=== PATIENT | female | born 2000 | race Caucasian/White ===

== ENCOUNTER 2019-02-08 15:18 | Emergency (ER) | payer OTHER ==
--- NOTE | 2019-02-08 15:28 | PDOC ---
Rapid Medical Evaluation Time Seen by Provider: 02/08/19 15:25 Medical Evaluation: 02/08/19 15:25 I performed a brief in-person evaluation of this patient. Chief complaint: Right facial numbess since yesterday, right-sided headaches and nausea x 1 month, reports pupil larger on right side Pertinent physical exam findings: Decreased sensation right lower face. No slurred speech or facial droop. BP 162/98. I have ordered the following: CBC, CMP, Mg, UA, urine preg, CT brain Patient to proceed to the ED for further evaluation. Discharge Disposition - Diagnosis Right facial numbness - Referrals - Patient Instructions - Post Discharge Activity
[2019-02-08 15:30] VITALS: PULSE 101; BMI 20.5
[2019-02-08 15:59] LABS: BASO % 0.6 % (0-2.0); EOS % 1.5 % (0-4.5); HEMATOCRIT 43.9 % (32.4-45.2); HEMOGLOBIN 14.8 GM/dL (10.7-15.3); LYMPH % 48.3 % (8-40); MCH 31.4 pg (25.7-33.7); MCHC 33.7 g/dl (32.0-36.0); MEAN CELL VOLUME 93.3 fl (80-96); MEAN PLT VOLUME 10.2 fl (7.5-11.1); MONO % 7.2 % (3.8-10.2); NEUT % 42.4 % (42.8-82.8); PLATELET COUNT 301 K/MM3 (134-434); RDW 11.9 % (11.6-15.6); WHITE BLOOD COUNT 6.5 K/mm3 (4.0-10.0)
[2019-02-08 16:27] LABS: ALBUMIN 4.4 g/dl (3.4-5.0); ALK PHOS 72 U/L (45-117); ANION GAP 6 MMOL/L (8-16); BILIRUBIN,TOTAL 0.9 mg/dL (0.2-1); BLOOD UREA NITROGEN 5 mg/dL (7-18); CALCIUM 9.3 mg/dL (8.5-10.1); CHLORIDE 104 mmol/L (98-107); CO2 28 mmol/L (21-32); CREATININE 0.6 mg/dL (0.55-1.3); GLUCOSE,RANDOM 83 mg/dL (74-106); MAGNESIUM 2.4 mg/dL (1.8-2.4); POTASSIUM 3.6 mmol/L (3.5-5.1); SGOT/AST 15 U/L (15-37); SGPT/ALT 26 U/L (13-61); SODIUM 137 mmol/L (136-145)
--- NOTE | 2019-02-08 20:14 | PDOC ---
Attending Attestation - HPI HPI: 02/08/19 20:33 The patient is a 18 year old female with a significant PMH of migraines who presents to the emergency department with numbness to the right cheek. Patient states the numbness starts at the right cheek and radiates down toward the jaw. Patient denies any history of Lyme or ticks. Patient has also noticed that her right pupil is slightly larger than the left. Patient states she has 2200 vision on the left eye but is used to walking around with the blurriness. Patient is also complaining of a migraine headache localized on the right side of the head. LMP ended last week. The patient denies chest pain, shortness of breath, and dizziness. Denies fever, chills, nausea, vomit, diarrhea and constipation. Denies dysuria, frequency, urgency and hematuria. Allergies: NKA Past surgical history: None reported. Social history: No reported alcohol, drug or cigarette use. - Physicial Exam PE: 02/08/19 20:33 GENERAL: Awake, alert, and fully oriented, in no acute distress HEAD: No signs of trauma EYES: PERRLA, EOMI ENT: Auricles normal inspection, hearing grossly normal, nares patent, oropharynx clear without exudates. Moist mucosa LUNGS: Breath sounds equal, clear to auscultation bilaterally. No wheezes, and no crackles HEART: Regular rate and rhythm, normal S1 and S2, no murmurs, rubs or gallops ABDOMEN: Soft, nontender, normoactive bowel sounds. No guarding, no rebound. No masses EXTREMITIES: Normal range of motion, no edema. No clubbing or cyanosis. No cords, erythema, or tenderness NEUROLOGICAL: Cranial nerves II through XII grossly intact. Normal speech, normal gait. (+) Numbness to the right bottom half of the face going to the left chin. (+) Left scapular numbness. SKIN: Warm, Dry, normal turgor, no rashes or lesions noted. <Dayanna Hopson - Last Filed: 02/08/19 20:33> - Resident Resident Name: Austin Alicea - ED Attending Attestation I have performed the following: I have examined & evaluated the patient, The case was reviewed & discussed with the resident, I agree w/resident's findings & plan - HPI HPI: 02/08/19 20:13 Pt comes with headache and right sided cheek numbness. - Medical Decision Making 02/08/19 20:14 CT head is normal. 02/08/19 23:11 EXAM: MRI brain without contrast and MRA brain without contrast HISTORY: New onset right facial numbness COMPARISON: None. FINDINGS: MRI brain: There is no evidence of acute infarction. There is no intracranial hemorrhage. No mass lesion or midline shift seen. There is no abnormal intra-axial or extra-axial fluid collection. Normal, expected flow-voids in the major intracranial vessels. CONFIDENTIALITY NOTICE: This information is intended only for the use of the recipient(s) named above. If you are not the intended recipient, or a person responsible for delivering it to the intended recipient, you are hereby notified that any disclosure, copying, distribution or use of any of the information contained in or attached to this transmission is STRICTLY PROHIBITED. If you have received this transmission in error, please immediately notify [employer] and destroy the original transmission and its attachments without saving them in any manner [address] [facility] [address] [place] [address] Phone: [phone]) Fax: Email: [email or web address] Web: [email or web address] Patient Information: : 2000 Order Type: Preliminary Name: KYREE SALTER Sex: F Study Description: MR BRAIN / MR MRA HEAD Modality: MR Location: [facility] Referring Physician: RASHAD CANO MRA brain: There is no major cerebral arterial stenosis or occlusion, vascular malformation or aneurysm of 3 mm or greater Pt is stable for discharge <Yuli Linares - Last Filed: 02/08/19 23:32>
--- NOTE | 2019-02-08 20:16 | PDOC ---
History of Present Illness - General Chief Complaint: CVA/TIA Stated Complaint: SENT BY PCP/RT CHEEK NUMBNES Time Seen by Provider: 02/08/19 15:25 History Source: Patient Exam Limitations: No Limitations - History of Present Illness Initial Comments: 02/08/19 19:24 18 yo F with a hx of ADHD presents to the emergency department with facial numbness and tingling since yesterday at 3pm. Per the patient, she states it was a sudden onset of facial tingling since yesterday at 3 pm. Per the patient, it was sudden onset located on the right sided cheek and lower face without radiation. Per the patient, it feels like when a "leg goes ; tingling feeling". Denies hx of lyme disease, MS in the family, and vitamin deficiencies. In addition, she had new onset of right sided migraine headache for the past month with pupillary dilation on the right over left. Endorses having chronic decreased right vision and endorses that she does not use glasses. Denies the following: fever, chills, SOB, chest pain, ears/nose/throat pain, rashes, dizziness, lightheadedness, nausea, vomiting, slurred speech, FND , abdominal pain, neck stiffness, dysuria, hematuria, and diarrhea. Shx: None Allergies: NKDA Social: Denies tobacco, alcohol, and substance abuse. Past History - Past Medical History Allergies/Adverse Reactions: Allergies Allergy/AdvReac Type Severity Reaction Status Date / Time No Known Allergies Allergy Verified 02/08/19 15:26 Home Medications: Ambulatory Orders Dextroamphetamine/Amphetamine [Adderall 10 mg Tablet] 15 mg PO ASDIR 02/08/19 COPD: No Psychiatric Problems: Yes (ADHD) - Immunization History Immunization Up to Date: Yes - Suicide/Smoking/Psychosocial Hx Smoking History: Never smoked Hx Alcohol Use: No Drug/Substance Use Hx: No Review of Systems - Review of Systems Able to Perform ROS?: Yes Is the patient limited Turkmen proficient: No Constitutional: No: Chills, Diaphoresis, Fever, Weakness HEENTM: No: Eye Pain, Blurred Vision, Nose Pain, Throat Pain, Mouth Pain Respiratory: No: Cough, Shortness of Breath Cardiac (ROS): No: Chest Pain, Lightheadedness, Palpitations, Syncope, Chest Tightness ABD/GI: No: Constipated, Diarrhea, Nausea, Rectal Bleeding, Vomiting, Tarry Stools : No: Burning, Dysuria, Hematuria Musculoskeletal: No: Back Pain, Joint Pain, Neck Pain Integumentary: No: Bruising, Erythema, Rash Neurological: Yes: Numbness, Tingling. No: Headache, Tremors, Ataxia, Dizziness Psychiatric: No: Change in Appetite Endocrine: No: Unexplained Weight Gain Hematologic/Lymphatic: No: Anemia *Physical Exam - Vital Signs Last Vital Signs Temp Pulse Resp BP Pulse Ox 98.6 F 101 H 16 162/98 100 02/08/19 15:27 02/08/19 15:27 02/08/19 15:27 02/08/19 15:27 02/08/19 15:27 - Physical Exam General Appearance: Yes: Nourished, Appropriately Dressed. No: Apparent Distress, Intoxicated HEENT: positive: EOMI, DAINA, Normal Voice, Symmetrical, Pharynx Normal, Hearing Grossly Normal. negative: Pale Conjunctivae, Scleral Icterus (R), Scleral Icterus (L), Muffled/Hoarse voice, Pharyngeal Erythema, Tonsillar Exudate, Tonsillar Erythema, Excessive drooling Neck: positive: Trachea midline, Supple. negative: Tender, Lymphadenopathy (R) , Lymphadenopathy (L), Tender lateral, Tender midline Respiratory/Chest: positive: Lungs Clear, Normal Breath Sounds. negative: Chest Tender, Respiratory Distress, Accessory Muscle Use, Crackles, Rales, Rhonchi, Stridor, Wheezing, Hyperresonant Cardiovascular: positive: Regular Rhythm, Regular Rate, S1, S2. negative: Systolic Murmur Gastrointestinal/Abdominal: positive: Normal Bowel Sounds, Flat, Soft. negative : Tender, Rebound, Tenderness Lymphatic: negative: Adenopathy Musculoskeletal: positive: Normal Inspection. negative: CVA Tenderness, Decreased Range of Motion, Vertebral Tenderness Extremity: positive: Normal Capillary Refill, Normal Inspection, Normal Range of Motion. negative: Tender, Swelling, Calf Tenderness Integumentary: positive: Normal Color, Dry, Warm Neurologic: positive: cyanide pot hardener II-XII NML intact, Fully Oriented, Alert, Normal Mood/ Affect, Normal Response, Motor Strength 5/5, Numbness (right v2-v3), Sensory Deficit (right v2-v3 ), Finger to Nose (intact). negative: EOM Palsy, Facial Droop, Confused, Disoriented, Depressed Affect Moderate Sedation - Procedure Monitoring Vital Signs: Procedure Monitoring Vital Signs Temperature 98.6 F 02/08/19 15:27 Pulse Rate 101 H 02/08/19 15:27 Respiratory Rate 16 02/08/19 15:27 Blood Pressure 162/98 02/08/19 15:27 O2 Sat by Pulse Oximetry (%) 100 02/08/19 15:27 ED Treatment Course - LABORATORY CBC & Chemistry Diagram: 02/08/19 15:33 02/08/19 15:33 - ADDITIONAL ORDERS Additional order review: Laboratory Results 02/08/19 02/08/19 16:10 15:33 Sodium 137 Potassium 3.6 Chloride 104 Carbon Dioxide 28 Anion Gap 6 L BUN 5 L Creatinine 0.6 Creat Clearance w eGFR 127.45 Random Glucose 83 Calcium 9.3 Magnesium 2.4 Total Bilirubin 0.9 AST 15 ALT 26 Alkaline Phosphatase 72 Total Protein 8.0 Albumin 4.4 Urine HCG, Qual Negative 02/08/19 15:33 RBC 4.70 MCV 93.3 MCHC 33.7 RDW 11.9 MPV 10.2 Neutrophils % 42.4 L Lymphocytes % 48.3 H Monocytes % 7.2 Eosinophils % 1.5 Basophils % 0.6 Medical Decision Making - Medical Decision Making 18 yo F with a hx of ADHD presents to the emergency department with facial numbness and tingling since yesterday at 3pm. Initial vitals: Initial Vital Signs Temp Pulse Resp BP Pulse Ox 98.6 F 101 H 16 162/98 100 02/08/19 15:27 02/08/19 15:27 02/08/19 15:27 02/08/19 15:27 02/08/19 15:27 Work up: patient presents to the emergency department with facial numbness concerning for vascular compromise intracranially. In addition, possible MS like features. headache is chronic over the past month without FND other than the cheek and lower jaw numbness on the right side. patient denies it being the worst headache of her life. CT head was negative. Laboratory Tests 02/08/19 02/08/19 02/08/19 15:33 15:33 16:10 WBC 6.5 RBC 4.70 Hgb 14.8 Hct 43.9 MCV 93.3 MCH 31.4 MCHC 33.7 RDW 11.9 Plt Count 301 MPV 10.2 Absolute Neuts (auto) 2.8 Neutrophils % 42.4 L Lymphocytes % 48.3 H Monocytes % 7.2 Eosinophils % 1.5 Basophils % 0.6 Nucleated RBC % 0 ESR Sodium 137 Potassium 3.6 Chloride 104 Carbon Dioxide 28 Anion Gap 6 L BUN 5 L Creatinine 0.6 Creat Clearance w eGFR 127.45 Random Glucose 83 Calcium 9.3 Magnesium 2.4 Total Bilirubin 0.9 AST 15 ALT 26 Alkaline Phosphatase 72 Total Protein 8.0 Albumin 4.4 Urine Color Straw Urine Appearance Clear Urine pH 7.0 Ur Specific [place] 1.002 L Urine Protein Negative Urine Glucose (UA) Negative Urine Ketones Negative Urine Blood Negative Urine Nitrite Negative Urine Bilirubin Negative Urine Urobilinogen Negative Ur Leukocyte Esterase Negative Urine HCG, Qual 02/08/19 02/08/19 16:10 20:30 WBC RBC Hgb Hct MCV MCH MCHC RDW Plt Count MPV Absolute Neuts (auto) Neutrophils % Lymphocytes % Monocytes % Eosinophils % Basophils % Nucleated RBC % ESR 3 Sodium Potassium Chloride Carbon Dioxide Anion Gap BUN Creatinine Creat Clearance w eGFR Random Glucose Calcium Magnesium Total Bilirubin AST ALT Alkaline Phosphatase Total Protein Albumin Urine Color Urine Appearance Urine pH Ur Specific [place] Urine Protein Urine Glucose (UA) Urine Ketones Urine Blood Urine Nitrite Urine Bilirubin Urine Urobilinogen Ur Leukocyte Esterase Urine HCG, Qual Negative labs within normal limits. no electrolyte abnormalities; especially calcium and potassium. Neurology was consulted (Dr Koroma). Per neurology, the patient can be followed up in outpatient if the patient does not wish to stay in the hospital pending normal MRI results. MRI brain and MRA were ordered and revealed to be within normal limits. the patient was well appearing at the time of discharge and understood the importance of following up with neurology within 7 days after discharge. in addition, she was given return precautions. Stable at discharge. Dispo: Discharge *DC/Admit/Observation/Transfer Diagnosis at time of Disposition: Right facial numbness - Discharge Dispostion Disposition: HOME Decision to Admit order: No - Referrals Referrals: Waldemar Magallanes MD [Staff Physician] - [facility] [place] [facility] [place]] - Patient Instructions Additional Instructions: you were seen in the emergency department for the evaluation of your facial numbness. please follow up with the neurologist that you are referred to within 1 week after discharge. in addition, please follow up with the primary medical doctor referred to you within 1 week after discharge. please return to the emergency department if you have worsening symptoms or new concerning symptoms such as weakness or confusion. thank you. - Post Discharge Activity
[2019-02-08 20:33] VITALS: BP 149/94; TEMP 98.2
[2019-02-08 20:58] LABS: URINE APPEARANCE CLEAR; URINE BILIRUBIN NEGATIVE (<2.0 mg/dL); URINE COLOR STRAW; URINE GLUCOSE (UA) NEGATIVE (NEGATIVE); URINE KETONE NEGATIVE (NEGATIVE); URINE LEUK ESTERASE NEGATIVE (NEGATIVE); URINE NITRITE NEGATIVE (NEGATIVE); URINE PROTEIN NEGATIVE (NEGATIVE); URINE UROBILINOGEN NEGATIVE mg/dL (0.2-1.0)
--- NOTE | 2019-02-08 21:01 | PN ---
Teaching Attending Note Name of Resident: Drew Cervantes ATTENDING PHYSICIAN STATEMENT I saw and evaluated the patient. I reviewed the resident's note and discussed the case with the resident. I agree with the resident's findings and plan as documented. SUBJECTIVE: Patient is a 18 year old woman with a PMH of ADHD and migraines who presents to the ER with numbness to the right cheek. Patient states the numbness starts at the right cheek and radiates down toward the jaw. Patient denies any history of Lyme or ticks. Patient has also noticed that her right pupil is slightly larger than the left. Patient states she has 2200 vision on the left eye but is used to walking around with the blurriness. Patient is also complaining of a migraine headache localized on the right side of the head. LMP ended last week. She denies chest pain, shortness of breath, dizziness, fever, chills, nausea, vomit, diarrhea, constipation, dysuria, frequency, urgency or hematuria. No drooling. No recent dental infection or issues and no limitation with chewing or swallowing. OBJECTIVE: Alert Vital Signs Period Temp Pulse Resp BP Sys/Sosa Pulse Ox Last 24 Hr 98.2 F-98.6 F 101-101 16-18 149-162/94-98 100-100 HEENT: No Jaundice, eye redness or discharge, PERRLA, EOMI. Normocephalic, atraumatic. External ears are normal and hearing is grossly intact. No nasal discharge. Numbness to right bottom half of face. No facial asymmetry. Neck: Supple, nontender. No palpable adenopathy or thyromegaly. No JVD Chest: Good effort. Clear to auscultation and percussion. Heart: Regular. No S3, rub or murmur Abdomen: Not distended, soft, nontender and no HSM. No rebound or guarding. Normal bowel sounds. Ext: Peripheral pulses intact. No leg edema. Skin: Warm and dry. No petechiae, rash or ecchymosis. Neuro: Alert. Oriented x3. CN 2-12 grossly intact. Sensation grossly intact in all four extremities and DTR are symmetric. Psych: Appropriate mood and affect. Good insight. Home Medications Medication Instructions Recorded Dextroamphetamine/Amphetamine 15 mg PO ASDIR 02/08/19 [Adderall 10 mg Tablet] Abnormal Lab Results 03/15/19 03/15/19 15:33 15:33 Neutrophils % 42.4 L Lymphocytes % 48.3 H Anion Gap 6 L BUN 5 L ASSESSMENT AND PLAN: 1. Facial Numbness - No acute abnormality on head CT scan. Patten concerns include Multiple sclerosis or Burton's palsy due to a viral infection. Neurology consulted. Brain MRI/MRA ordered. Will continue to monitor her BP since the initial value was elevated. 2. DVT prophylaxis - Lovenox 40 mg SQ q 24 hours. 3. Advance directives - Full code
== END 2019-02-08 23:17 | disposition home or self-care (01) ==
LOC: JER 15:18
DX: R20.0 Anesthesia of skin (principal); G43.909 Migraine, unspecified, not intractable, without status migrainosus; F90.9 Attention-deficit hyperactivity disorder, unspecified type
CPT/HCPCS: 36415; 70450-TC; 70544-TC; 70551-TC; 80053; 81003; 83735; 84703; 85025; 85651; 99283-25